=== PATIENT | female | born 1955 | race Caucasian/White ===

== ENCOUNTER 2017-08-16 13:17 | Emergency (ER) | payer OTHER ==
[~2017-08-16] VITALS: Ht 167.6 cm; Wt 120.0 kg
[2017-08-16 13:26] VITALS: BP 175/82; PULSE 83; RESP 15; TEMP 98.2; O2SAT 98
--- NOTE | 2017-08-16 13:48 | PD ---
HPI Chief Complaint: Fall Time Seen by Provider: 13:35 Travel History International Travel<30 days: No Contact w/Intl Traveler<30days: No Traveled to known affect area: No History of Present Illness HPI Patient is a 62-year-old female presents to emergency room with complaints of left knee pain. Patient reports that she was [place] the dog park today, reports that another large dog that was not her own hit her from behind the left knee. Patient reports that she has had history of patella as well as the left knee replacement in the past. Reports that when she was hit behind, she did fall onto her left knee, reports pain to her left knee. Patient reports that she did fall backwards and hit her head on the grass surface. Patient reports no loss of consciousness, denies any use of anticoagulants. Patient reports mild posterior headache at this time. Patient with no vomiting, denies any vision changes, she was ambulate after her fall today. PFSH Past Medical History Asthma: Yes Anxiety: Yes Depression: Yes Medical other: Yes (BILATERAL KNEE REPLACEMENTS, RIGHT SHOULDER) Social History Alcohol Use: No Tobacco Use: No Substance Use: No Allergies-Medications (Allergen,Severity, Reaction): Coded Allergies: Cephalosporins (Verified Allergy, Unknown, 08/16/17) Iodinated Contrast- Oral and IV Dye (Verified Allergy, Unknown, 08/16/17) Penicillins (Verified Allergy, Unknown, 08/16/17) Sulfa (Sulfonamide Antibiotics) (Verified Allergy, Unknown, 08/16/17) amoxicillin (Verified Allergy, Unknown, 08/16/17) carbamazepine (Verified Allergy, Unknown, 08/16/17) cephalexin (Verified Allergy, Unknown, 08/16/17) ciprofloxacin (Verified Allergy, Unknown, 08/16/17) clavulanic acid (Verified Allergy, Unknown, 08/16/17) gabapentin (Verified Allergy, Unknown, 08/16/17) oxcarbazepine (Verified Allergy, Unknown, 08/16/17) topiramate (Verified Allergy, Unknown, 08/16/17) Review of Systems General / Constitutional: No: Fever Eyes: No: Visual changes HENT: No: Headaches Cardiovascular: No: Chest Pain or Discomfort Respiratory: No: Shortness of Breath Gastrointestinal: No: Abdominal Pain Genitourinary: No: Dysuria Musculoskeletal: Positive: Limited ROM (left knee pain), Pain (left knee pain) Skin: No Rash Neurologic: Positive: Headache, No: Weakness Psychiatric: No: Depression Endocrine: No: Polydipsia Hematologic/Lymphatic: No: Easy Bruising Physical Exam Narrative GENERAL: NAD SKIN: Focused skin assessment warm/dry. HEAD: Atraumatic. Normocephalic. EYES: Pupils equal and round. No scleral icterus. No injection or drainage. ENT: No nasal bleeding or discharge. Mucous membranes pink and moist. NECK: Trachea midline. No JVD. CARDIOVASCULAR: Regular rate and rhythm. No murmur appreciated. RESPIRATORY: No accessory muscle use. Clear to auscultation. Breath sounds equal bilaterally. GASTROINTESTINAL: Abdomen soft, non-tender, nondistended. Hepatic and splenic margins not palpable. MUSCULOSKELETAL: No obvious deformities. No clubbing. No cyanosis. No edema. Patient with normal range of motion to bilateral hips, pain with range of motion to left knee - there are no obvious deformities or bruising or swelling to her left knee, pulses intact, neurovascularly intact. NEUROLOGICAL: Awake and alert. No obvious cranial nerve deficits. Motor grossly within normal limits. Normal speech. CN 2-12 grossly intact with no neurological deficits. PSYCHIATRIC: Appropriate mood and affect; insight and judgment normal. Data Data Last Documented VS Vital Signs Date Time Temp Pulse Resp B/P (MAP) Pulse Ox O2 Delivery O2 Flow Rate FiO2 08/16/17 13:26 98.2 83 15 175/82 (113) 98 Orders Orders Knee, Complete (4vws) (08/16/17 ) Ct Brain W/O Iv Contrast(Rout) (08/16/17 13:43) Ice/Cold Pack (08/16/17 13:43) Acetaminophen (Tylenol) (08/16/17 14:00) [place] Bandage (08/16/17 14:45) Ed Discharge Order (08/16/17 14:45) MDM Medical Decision Making Medical Screen Exam Complete: Yes Emergency Medical Condition: Yes Medical Record Reviewed: Yes Interpretation(s) Vital Signs Date Time Temp Pulse Resp B/P (MAP) Pulse Ox O2 Delivery O2 Flow Rate FiO2 08/16/17 13:26 98.2 83 15 175/82 (113) 98 Differential Diagnosis Knee sprain versus strain versus fracture, head injury, intracranial hemorrhage though unlikely Narrative Course Patient with mild headache this time, acetaminophen ordered. CT of the head as well as x-ray of the knee ordered. Last Impressions Knee X-Ray 08/16/17 0000 Signed Impressions: Service Date/Time: Wednesday, August 16, 2017 13:46 - CONCLUSION: 1. Postoperative knee replacement. No complications identified. Kenny Persaud MD CT of the head: Patient With no acute abnormalities. Reviewed all studies as well as all findings with patient, patient with no acute abnormalities Patient will follow-up with her orthopedic surgeon and return to the emergency room as needed. Signs and symptoms of when to return to the emergency room was reviewed with patient in detail. Understands that I cannot rule out ligamentous injuries at this time. Diagnosis Primary Impression: Head injury Qualified Codes: S09.90XA - Unspecified injury of head, initial encounter Additional Impression: Knee sprain Qualified Codes: S83.92XA - Sprain of unspecified site of left knee, initial encounter Patient Instructions: General Instructions Additional Instructions: Please provide patient with a copy of her studies at discharge Please follow up with your primary care doctor in 2-3 days Return to the ER if symptoms worsen or progress Return to the ER as needed Please follow up with orthopedic surgeon Rest, ice, elevate your left lower extremity Disposition: 01 DISCHARGE HOME Condition: Stable Jaycee Garcia DO Aug 16, 2017 13:48
[2017-08-16] MEDS ORDERED: ACETAMINOPHEN 325 MG TAB PO ONE (14:00)
--- NOTE | 2017-08-16 14:02 | RADRPT ---
EXAM DATE/TIME: 08/16/2017 13:46 [facility] COMPARISON: No previous studies available for comparison. INDICATIONS : Left knee pain after fall. MEDICAL HISTORY : None. SURGICAL HISTORY : Total knee replacement, left. ENCOUNTER: Initial ACUITY: 1 day PAIN SCORE: 8/10 LOCATION: Left knee. FINDINGS: Postoperative left total knee replacement. No significant effusion. No fracture or dislocation. CONCLUSION: 1. Postoperative knee replacement. No complications identified. Kenny Persaud MD on August 16, 2017 at 14:00 Board Certified Radiologist. This report was verified electronically.
--- NOTE | 2017-08-16 14:36 | RADRPT ---
EXAM DATE/TIME: 08/16/2017 13:54 [facility] COMPARISON: No previous studies available for comparison. INDICATIONS : Fall, hit head on ground. RADIATION DOSE: 56.35 CTDIvol (mGy) MEDICAL HISTORY : None SURGICAL HISTORY : None. ENCOUNTER: Initial ACUITY: 1 day PAIN SCALE: 3/10 LOCATION: Bilateral occipital TECHNIQUE: Multiple contiguous axial images were obtained of the head. Using automated exposure control and adj ustment of the mA and/or kV according to patient size, radiation dose was kept as low as reasonably a chievable to obtain optimal diagnostic quality images. DICOM format image data is available electro nically for review and comparison. FINDINGS: CEREBRUM: The ventricles are normal for age. No evidence of midline shift, mass lesion, hemorrhage or acute in farction. No extra-axial fluid collections are seen. POSTERIOR FOSSA: The cerebellum and brainstem are intact. The 4th ventricle is midline. The cerebellopontine angle i s unremarkable. EXTRACRANIAL: The visualized portion of the orbits is intact. SKULL: The calvaria is intact. No evidence of skull fracture. CONCLUSION: 1. No acute intracranial abnormalities. Kenny Persaud MD on August 16, 2017 at 14:32 Board Certified Radiologist. This report was verified electronically.
== END 2017-08-16 15:05 | disposition home or self-care (01) ==
LOC: NEPD 13:17
DX: S09.90XA Unspecified injury of head, initial encounter (principal); S83.92XA Sprain of unspecified site of left knee, initial encounter; J45.909 Unspecified asthma, uncomplicated; F41.9 Anxiety disorder, unspecified; F32.9 Major depressive disorder, single episode, unspecified; W18.09XA Striking against other object with subsequent fall, initial encounter
CPT/HCPCS: 70450; 73564; 99285